=== PATIENT | female | born 1995 | race Caucasian/White ===

== ENCOUNTER → 2017-07-24 | Outpatient (CLI) | payer BC, OTHER ==
[~2017-07-24] MED LIST: NO HOME MEDICATIONS; TYLENOL #3 301 UDTAB PO
== END ==
LOC: COL.RAD 07:30
DX: M94.8X8 Other specified disorders of cartilage, other site (principal); M25.461 Effusion, right knee; S83.511A Sprain of anterior cruciate ligament of right knee, initial encounter; X50.1XXA Overexertion from prolonged static or awkward postures, initial encounter; Y93.63 Activity, rugby